=== PATIENT | female | born 1940 | race Caucasian/White ===

== ENCOUNTER 2017-11-14 19:31 | Inpatient (IN) | payer OTHER ==
--- NOTE | 2017-11-14 20:06 | EDPHY ---
H & P Stated Complaint: DOG BITE PUNCTURE L HAND/INC REDNESS X 24 HRS Time Seen by Provider: 11/14/17 19:43 HPI/ROS: CHIEF COMPLAINT: Dog bite HISTORY OF PRESENT ILLNESS: This is a 77-year-old female who was bitten by her own dog about 24 hr ago. She states that she had a single puncture wound on the back of her left hand. It was initially painful but not otherwise trouble some. However, tonight, about 2 hr ago, she noticed that it was red and swollen. The pain increased. She feels poorly overall. She had a temperature of 100 degrees at home. Her dog's shots are up to date. She is right-hand dominant. REVIEW OF SYSTEMS: A ten point review of systems was performed and is negative with the exception of the items mentioned in the HPI. Past medical history: Hypothyroid Past surgical history: Negative Social history: She lives alone. General Appearance: Alert. Vital signs reviewed. Blood pressure 171/88. Neck: No lymphadenopathy. Respiratory: Lungs are clear to auscultation; no wheezes, rales, or rhonchi. Cardiovascular: Regular rate and rhythm; no murmur, rub, or gallop. Gastrointestinal: Abdomen is soft and nontender. Skin: Warm and dry, no rashes on exposed skin. Extremities: Posterior aspect of the left hand is warm, swollen, and erythematous. Erythema does not extend onto her fingers other than the thumb. It is extending onto her wrist and to the MCP joints of the thumb, IF, and long finger. She has full flexion and extension of all 5 digits of the left hand. Full left wrist flexion and extension, full left elbow flexion and extension. Single puncture wound from which a small amount of purulence can be expressed. Sensation is intact to light touch over her left upper extremity. Pulses: 2+ left radial pulse. Neurological: Alert and oriented. Moving all four extremities easily and equally. Psychiatric: Normal affect. - Personal History Current Tetanus Diphtheria and Acellular Pertussis (TDAP): Yes Tetanus Vaccine Date: 2014 - Medical/Surgical History Hx Asthma: No Hx Chronic Respiratory Disease: No Hx Diabetes: No Hx Cardiac Disease: No Hx Renal Disease: No Hx Cirrhosis: No Hx Alcoholism: No Hx HIV/AIDS: No Hx Splenectomy or Spleen Trauma: No Other PMH: HTN, hypothyroidism. tonsillectomy, D&C, facelift 2011 - Social History Smoking Status: Never smoked Constitutional: Initial Vital Signs Temperature (C) 36.8 C 11/14/17 19:37 Heart Rate 76 11/14/17 19:37 Respiratory Rate 16 11/14/17 19:37 Blood Pressure 171/88 H 11/14/17 19:37 O2 Sat (%) 96 11/14/17 19:37 O2 Delivery Mode Room Air Allergies/Adverse Reactions: No Known Allergies Allergy (Unverified 03/15/14 13:43) Home Medications: Medication Instructions Recorded Calcium Carb,Gluc/Mag Ox,Gluc 1 each PO DAILY@18 11/14/17 [Calcium Magnesium Caplet] Cholecalciferol Vit D3 [Vitamin D3 2,000 units PO DAILY@18 11/14/17 (*)] Levothyroxine [Synthroid 137 mcg 137 mcg PO DAILY06 11/14/17 (*)] Multivitamins [Multivitamin (*)] 1 each PO DAILY@18 11/14/17 Medical Decision Making ED Course/Re-evaluation: 77-year-old immunocompetent female who was bitten by her own dog. She had a single puncture wound to the back of her left hand. She has had relatively rapid progression of warmth, erythema, and swelling over the last 2 hr. The swelling is beginning to advance past her wrist. She is not febrile in the emergency department. I have spoken with Dr. Savanna camacho of Infectious Disease. She recommends Unasyn q.6 hours IV. I have also spoken with Dr. Meneses who will see the patient in consultation. Differential Diagnosis: DDX includes but is not limited to abscess, cellulitis, foreign body, tenosynovitis. - Data Points Microbiology Results: MICROBIOLOGY 11/14/17 19:50 Hand - Swab Gram Stain - Final 11/14/17 19:50 Hand - Swab Wound Culture - Preliminary Pasturella Stomatis Medications Given: Enoxaparin Sodium (Lovenox) 40 mg SC DAILY ALYCE Stop: 05/14/18 08:59 Last Admin: 11/15/17 09:57 Dose: Not Given Hydrogen Peroxide (Hydrogen Peroxide) 1 viridiana TP TID ALYCE Stop: 12/15/17 21:59 Last Admin: 11/15/17 22:59 Dose: Not Given Ampicillin Sodium/Sulbactam (Sodium 3 gm/ Sodium Chloride) 100 mls @ 200 mls/ hr IV Q6H ALYCE PRN Reason: Protocol Stop: 12/15/17 02:59 Last Admin: 11/16/17 03:14 Dose: 100 mls Levothyroxine Sodium (Synthroid) 137 mcg PO DAILY06 [facility] Stop: 05/14/18 05:59 Last Admin: 11/16/17 05:48 Dose: 137 mcg Discontinued Medications Ampicillin Sodium/Sulbactam (Sodium 3 gm/ Sodium Chloride) 100 mls @ 200 mls/ hr IV EDNOW ONE PRN Reason: Protocol Stop: 11/14/17 20:39 Last Admin: 11/14/17 21:05 Dose: 100 mls Departure - Departure Disposition: [facility] Inpatient Acute Clinical Impression: Dog bite of left hand with infection Qualifiers: Encounter type: initial encounter Qualified Code(s): S61.452A - Open bite of left hand, initial encounter Condition: Good
[2017-11-14] MEDS ORDERED: AMPICILLIN/SULBACTAM 3 GM in NS 100 ML IV ONE (20:10)
[2017-11-14 20:42] LABS: PLATELET COUNT 217 10^3/uL (150-400)
[2017-11-14] MEDS ORDERED: traMADol 50 MG TAB PO PRN (21:13)
[2017-11-14] MEDS ORDERED: ACETAMINOPHEN 325 MG TAB PO PRN (21:13)
[2017-11-14] MEDS ORDERED: HYDROmorphone HCL/NS 0.5 MG/ML SYR IVP PRN (21:13)
[2017-11-14] MEDS ORDERED: ONDANSETRON 4 MG/2 ML VIAL IVP PRN (21:13)
[2017-11-14] MEDS ORDERED: HYDROCODONE/APAP 5/325 TAB PO PRN (21:13)
--- NOTE | 2017-11-14 21:44 | GHP ---
[f rep st] HISTORY AND PHYSICAL DATE OF ADMISSION: 11/14/2017 CHIEF COMPLAINT: Hand infection. HISTORY: The patient is a 77-year-old female, who was bitten by her own dog yesterday. There is a p uncture wound to the back of the hand. It hurt badly all night, but only turned red about 2 hours pr ior to admission. The redness was rapidly spreading so she presented quickly to the emergency room. She was having sweats alternating with chills and measured her temp at home to 100. PAST MEDICAL HISTORY: 1. Hypothyroidism. 2. Hypertension. MEDICATIONS: Please see computer record for full detailed list. ALLERGIES: No known drug allergies. SOCIAL HISTORY: No smoking. No alcohol. She lives alone. REVIEW OF SYSTEMS: Complete review of systems obtained. Review of systems negative regarding consti tutional, HEENT, GI, Pulmonary, Cardiovascular, , Hematology, Skin, Muscular, Endocrine, Psych exce pt for positives and negatives as in HPI. FAMILY HISTORY: Reviewed and noncontributory to presenting complaint. PHYSICAL EXAMINATION: GENERAL: Well-developed, well-nourished female, in no acute distress. VITAL SIGNS: Temperature 36.8, pulse 76, blood pressure 178/88, saturating 96% on room air. HEENT: Madhuri l conjunctivae. Pupils round and reactive to light. ENT: Normal ears, nose. Hearing intact. Norm al teeth. Oropharynx moist. NECK: Trachea midline. No thyromegaly. CHEST: Normal respiratory ef fort. LUNGS: Clear to auscultation bilaterally. CARDIOVASCULAR: Regular rhythm. No murmur. No l ower extremity edema. ABDOMEN: Soft, nontender. No hepatosplenomegaly. SKIN: Left hand has area of erythema over the dorsum of the hand. Well-circumscribed with some fluctuance and warmth. Decrea sed range of motion. MUSCULOSKELETAL: No cyanosis or clubbing. Strength 5/5 upper and lower extrem ities. NEUROLOGIC: Cranial nerves intact. Normal sensation to light touch. PSYCHIATRIC: Alert an d oriented x3. Normal affect. Normal judgment and insight. Normal memory. LABORATORY DATA: White count 9.84, hematocrit 41.7, platelets 217. Sodium 140, potassium 4.1, chlor gume 104, bicarb 23, BUN 17, creatinine 0.8, glucose 96. The case was discussed with Dr. Velma roque and Dr. Meneses of orthopedic surgery regarding plan moving forward. ASSESSMENT/PLAN: 1. Hand cellulitis secondary to a dog bite. Intravenous Unasyn has been recommended by Scotty noyola. They will see her in consultation in the morning. Dr. Meneses is currently at bedside and plans for bedside incision and decision, with subsequent culture. 2. Hypertension. The patient states she was previously on hydrochlorothiazide, although it does not currently appear to be on her med list. Blood pressure is elevated on presentation. We will monito r it for trend. CODE STATUS: Full. ADMISSION STATUS: Will admit to observation. We will re-evaluate tomorrow regarding ongoing need fo r hospitalization. DVT PROPHYLAXIS: She is moderate risk. Will place her on subcu Lovenox. /[id number]/MODL
--- NOTE | 2017-11-14 22:29 | GCON ---
[f rep st] CONSULTATION REFERRING PHYSICIAN: Velma Montgomery MD REASON FOR CONSULTATION: Left hand dog bite. HISTORY OF PRESENT ILLNESS: The patient presents to the ER with swelling and redness of her dorsal hand. Yesterday, her own bit her over the dorsal hand. Today, she noticed onset of redness over the dorsal hand and swelling with some pain. I was notified by the ER staff that some purulent material was expressed. She is to be admitted by the hospitalist service with Infectious Disease consulting. IV Unasyn was started with labs pending. PHYSICAL EXAM: GENERAL: The patient is alert and oriented, in no apparent distress. MUSCULOSKELETAL: On the left hand, there is erythema and swelling extending from the dorsal wrist crease to the 2nd and 3rd metacarpophalangeal joints and up to the thumb MCP joint. There is some fluctuance over the puncture karlene, which is the dog bite. Some purulent material can be expressed. ASSESSMENT: Left hand early abscess secondary to dog bite. PLAN: This appears to be an abscess which will require decompression. I discussed this with the patient, and I discussed the need for opening up the puncture karlene to let the infection drain. I discussed the risks and benefits with her. She verbally consented. Abscess was drained, and cultures were taken. She will be admitted to the hospitalist service. I placed packing in the wound. Tomorrow, I will remove the packing, change the dressing, and I will have the patient start soaks in 50/50 peroxide and water three times daily. DESCRIPTION OF PROCEDURE: Verbal consent was obtained. Left hand was anesthetized with 1% lidocaine with epinephrine. It was prepped in sterile fashion. A 15 blade was used to make a small incision over the puncture area. Some purulent material was expressed. I used scissors to carefully spread down to release any of the purulent material and then irrigated copiously with sterile saline. Packing strip was then placed. Sterile dressings were applied. She tolerated the procedure well. /[id number]/MODL MTDD
[2017-11-15] MEDS: AMPICILLIN/SULBACTAM 3 GM in NS 100 ML IV SCH ×4 (03:05→21:16)
[2017-11-15] MEDS: LEVOTHYROXINE 137 MCG TAB PO SCH (06:26)
--- NOTE | 2017-11-15 08:47 | SOAPPROG ---
SOAP Progress Note Assessment/Plan: Assessment: L hand early abscess 07/16 dog bite s/p I&D in ED 11/14 -incision clean w/o purulence Plan: -IV unasyn -follow cultures -appreciate care of hospitalist and ID teams -start soaks 11/15/17 08:46 Subjective: Doing well this am. No pain Objective: Vital Signs Temp Pulse Resp BP Pulse Ox 36.7 C 68 16 134/67 H 95 11/15/17 08:33 11/15/17 08:33 11/15/17 08:33 11/15/17 08:33 11/15/17 08:33 Microbiology 11/14/17 21:28 Gram Stain - Final Hand - Swab Laboratory Results 11/14/17 20:26 11/14/17 20:26 11/14/17 11/15/17 11/16/17 05:59 05:59 05:59 Intake Total 120 Balance 120 L hand -dressing changed, packing removed -swelling appears to have decreased somewhat, however erythema persists and may have increased slightly -the incision site is clean w/o purulence ICD10 Worksheet Patient Problems: Problems Problem Status Onset Dog bite of left hand with infection Acute
--- NOTE | 2017-11-15 09:51 | GCON ---
[f rep st] CONSULTATION INPATIENT INFECTIOUS DISEASE CONSULTATION REFERRING PHYSICIAN: Daniel Meneses MD REASON FOR REFERRAL: Dog bite and infection of the dorsal compartment of the left hand. HISTORY OF PRESENT ILLNESS: Patient is a 77-year-old female who suffered a dog bite on the dorsal as pect of her left hand while trying to restrain her dog from getting out of the car 2 days ago. The p atient suffered a puncture wound to the back of the hand and experienced some pain and erythema, whic h gradually worsened before she presented to the emergency room. Patient was also feeling somewhat h eadachy and feverish as well. Once she presented to the emergency room, she was diagnosed with a daisha sulma hand abscess, and Dr. Meneses came and drained it. The sample was sent to the micro lab. There is p olymicrobial Gram stain resulted. Culture is currently pending. The patient states this morning dakota t she feels much better. She still continues to have redness in the dorsal compartment of the left h and. Patient denies any fevers or chills. She is tolerating Unasyn without rash or diarrhea. PAST MEDICAL HISTORY: 1. Hypothyroidism. 2. Hypertension. PAST SURGICAL HISTORY: As above. ANTIBIOTICS: Unasyn. ALLERGIES: No known drug allergies. SOCIAL HISTORY: The patient lives independently. She does have family, including daughter and grand daughter in the area. She denies any tobacco, alcohol or drug use. FAMILY HISTORY: Reviewed but noncontributory. REVIEW OF SYSTEMS: Other than that detailed above in the History of Present Illness, a comprehensive 10-system review is negative. PHYSICAL EXAMINATION: VITAL SIGNS: Temperature maximum is 37.1. Temperature current is 26.7, heart rate 68. Respiratory rate is 16. Blood pressure is 134/67. GENERAL: The patient is a well-formed , well-nourished, elderly female in no acute distress. She is not toxic in appearance. She is alert and oriented x3. She is pleasant in demeanor. HEENT: Normocephalic for age. Atraumatic. No scle ral icterus. No drainage from the nares. Eyes, lids and conjunctivae are within normal limits. Pup ils are equal and round bilaterally. NECK: Supple. No meningismus. LUNGS: Clear to auscultation bilaterally with good effort. HEART: Regular rate and rhythm. No murmur, rub, or gallop noted. No significant peripheral edema. SKIN: Warm and dry to the touch. No rash. Patient does have postop erative site on the dorsal aspect of the left hand. There is 2 to 3+ swelling in that compartment. There is erythema that is evident throughout the dorsal compartment. There is erythema that stretche s distally into the thumb, as well as the 2nd and 3rd digits to the 1st PIP. There is a recent dress ing change and no strike through. There is no significant proximal erythema proximal to the wrist. MUSCULOSKELETAL: No muscle belly tenderness is noted. No joint line effusion or arthritis is seen. NEURO: Cranial nerves 2-12 seem to be intact. Peripheral sensation seems intact in extremities. LABORATORY DATA: The patient has a CBC dated 11/14/2017, shows a white blood cell count of 9.8, hemo globin of 14.8, hematocrit of 41.7, and a platelet count of 217. Differential is within normal limit s. Serum chemistries on 11/14/2017 show a sodium of 140, potassium 4.1, chloride of 104, bicarbonate of 23, BUN of 17, creatinine of 0.8. MICROBIOLOGIC DATA: Patient has blood cultures dated 11/14/2017, which are pending. The patient has operative cultures on her left hand. Gram stain is polymicrobial, showing gram-positive cocci, as w ell as gram-negative pleomorphic rods, also with rare gram-positive rods. ASSESSMENT: Left dorsal hand abscess, status post dog bite. Staphylococci and streptococci are cons idered. Capnocytophaga is also considered, given the pleomorphic andressa findings. Will continue with I V Unasyn as the patient has seen some clinical improvement and is tolerating well. Do not think that discharge today on orals is reasonable given location of infection and short time in treatment. Wou ld continue current therapy and observe the area for clinical improvement. This will also give some time for culture data to return. We will discuss the case with Dr. Meneses. PLAN: 1. Continue Unasyn at current dose. 2. Follow clinical appearance of the left dorsum of the hand. /[id number]/MODL
[2017-11-15] MEDS: ENOXAPARIN 40 MG/0.4 ML SYR SC SCH (09:57)
--- NOTE | 2017-11-15 10:51 | ASMTCMCOM ---
CM Note CM Note Notes: Chart reviewed. Met with patient who is a pleasant 77 year old female who lives independently in [place] with her dog. She sustained a dog bite to her hand. She is being treated with IV ANTB. No needs identified at present time unless she requires parts counterman ANTB therapy. CM to follow. Plan: Likely home without services. Date Signed: 11/15/2017 10:50 AM Electronically Signed By:Smiona Larry RN
--- NOTE | 2017-11-15 13:39 | HOSPPROG ---
Hospitalist Progress Note Assessment/Plan: 77 yo F with minimal PMH admitted with hand abscess s/p dog bite # hand abscess/cellulitis: with redness extending to all 5 fingers and s/p I&D . cultures pending, on unasyn for now. Plan to continue current absx pending further culture data. Discussed with ID. Ortho following # dog bite: as above # hypothyroid: contininue lt4 # IP status, will need > 48 hours stay for eval/mgmt of above Patient new to my care. Old records reviewed as above. Care plan reviewed with ID. Subjective: no significant overnight events, patient feeling better and wants to go home Objective: Vital Signs Temp Pulse Resp BP Pulse Ox 36.3 C 67 16 148/87 H 93 11/15/17 11:14 11/15/17 11:14 11/15/17 11:14 11/15/17 11:14 11/15/17 11:14 Microbiology 11/14/17 21:28 Gram Stain - Final Hand - Swab Laboratory Results 11/14/17 20:26 11/14/17 20:26 11/14/17 11/15/17 11/16/17 05:59 05:59 05:59 Intake Total 120 Balance 120 awake alert anicteric op clear rrr no mrg cta b soft nd nt left hand with erythma on dorsum of hand warm dry well perfused oriented ICD10 Worksheet Patient Problems: Problems Problem Status Onset Dog bite of left hand with infection Acute
[2017-11-15] MEDS: HYDROGEN PEROXIDE 236 ML BOTTLE TP SCH (22:59)
[2017-11-16] MEDS: AMPICILLIN/SULBACTAM 3 GM in NS 100 ML IV SCH ×2 (03:14→09:40)
[2017-11-16] MEDS: LEVOTHYROXINE 137 MCG TAB PO SCH (05:48)
--- NOTE | 2017-11-16 08:47 | PDMN ---
Medical Necessity Medical necessity: change to IP; los>2mn for L hand abscess/cellulitis r/t dog bite, w/redness extending to all fingers; s/p I&D; requires continued monitoring , IV abx, ID consult, and follow cx's; comorbid htn; per order and progress note 11/15/17
[2017-11-16] MEDS: HYDROGEN PEROXIDE 236 ML BOTTLE TP SCH (09:39)
[2017-11-16] MEDS: ENOXAPARIN 40 MG/0.4 ML SYR SC SCH (09:40)
--- NOTE | 2017-11-16 14:22 | PCMIDPN ---
Assessment/Plan: Dog bite and left hand infection with small abscess s/p I&D with culture showing pasteurella. This is my 1st visit but minimal swelling of the left hand with small amount of residual erythema in the anatomical snuffbox dorsally , small harder area there but without clear fluctuance. --DC on Augmentin 875 twice daily x1 week, education to take with food --warnings about signs and symptoms of C diff given Subjective: Patient is feeling significantly improved and wants to go home. Reports less hand pain Objective: Vital Signs Temp Pulse Resp BP Pulse Ox 36.3 C 68 14 146/84 H 94 11/16/17 12:37 11/16/17 12:37 11/16/17 12:37 11/16/17 12:37 11/16/17 12:37 Microbiology 11/14/17 21:28 Gram Stain - Final Hand - Swab Laboratory Results 11/14/17 20:26 11/14/17 20:26 11/15/17 11/16/17 11/17/17 05:59 05:59 05:59 Intake Total 120 1420 Balance 120 1420 - Physical Exam General Appearance: alert, no apparent distress Extremities: inflammation, swelling (left hand swelling, most prominent at the dorsal anatomical snuffbox with a dime-sized area of hard and material, small incision dorsally without drainage, mild erythema. Range of motion of all fingers is completely intact without pain) Skin: warm/dry, No diaphoresis, No jaundice Neuro/Psych: alert, normal mood/affect, oriented x 3 - Time Spent With Patient Time Spent with Patient: greater than 25 minutes (Care coordinated with hospitalist) Time Spent with Patient: Greater than 25 minutes spent on this patients care, greater than 50% of time spent counseling, educating, and coordinating care regarding the above mentioned plan. ICD10 Worksheet Patient Problems: Problems Problem Status Onset Dog bite of left hand with infection Acute
--- NOTE | 2017-11-16 14:26 | PDDCSUM ---
Discharge Summary Discharge Summary: Dates of service 11/14-11/16/17 Consultations: ID, orthopedics Procedures performed: abscess drainage Hospital course by problem: 77 yo F with minimal PMH admitted with hand abscess s/p dog bite # hand abscess/cellulitis: with redness extending to all 5 fingers and s/p I&D . Pasturella on culture, improving overnight. Discussed with Id and will dc on augmentin for one more week. # dog bite: as above # hypothyroid: contininue lt4 DC home > 35 min spent in discharge, more than half in coordination of care
[2017-11-16 15:22] VITALS: BP 152/82
--- NOTE | 2017-11-16 17:17 | SOAPPROG ---
SOAP Progress Note Assessment/Plan: Assessment: L hand early abscess 2/2 dog bite s/p I&D in ED 11/14 -incision clean w/o purulence, has been doing soaks. Erythema improving. Plan: -IV unasyn -f/u cultures -appreciate care of hospitalist and ID teams -cont soaks 11/15/17 08:46 11/16/17 17:13 Subjective: Pain improved. Erythema improving Objective: Vital Signs Temp Pulse Resp BP Pulse Ox 36.6 C 73 16 152/82 H 94 11/16/17 15:20 11/16/17 15:20 11/16/17 15:20 11/16/17 15:20 11/16/17 15:20 Microbiology 11/14/17 21:28 Gram Stain - Final Hand - Swab Laboratory Results 11/14/17 20:26 11/14/17 20:26 11/15/17 11/16/17 11/17/17 05:59 05:59 05:59 Intake Total 120 1420 Balance 120 1420 L hand -erythema improved -swelling improved -able to make full fist -the incision site is without drainage ICD10 Worksheet Patient Problems: Problems Problem Status Onset Dog bite of left hand with infection Acute
== END 2017-11-16 15:40 | disposition home or self-care (01) | DRG 603 ==
LOC: OBSVTOIN 20:16 → F1N 21:23
PROVIDERS: ADMIT Internal Medicine; ATTEND Internal Medicine
PROC: 0H9FXZZ Drainage of Right Hand Skin, External Approach (ICD-10-PCS; principal; 2017-11-14)
DX: L02.511 Cutaneous abscess of right hand (principal); S61.431A Puncture wound without foreign body of right hand, initial encounter; W54.0XXA Bitten by dog, initial encounter; E03.9 Hypothyroidism, unspecified; I10 Essential (primary) hypertension
CPT/HCPCS: G0378; J0295; J1650

== ENCOUNTER → 2018-08-05 | Outpatient (CLI) | payer OTHER | LOC: FIMAGING 14:36 | PROVIDERS: ATTEND Family Medicine | DX: Z12.31 Encounter for screening mammogram for malignant neoplasm of breast (principal) ==